=== PATIENT | female | born 1940 | race Caucasian/White ===

== ENCOUNTER 2020-03-13 08:35 | Outpatient (REF) | payer MEDICARE, SELFPAY ==
[2020-03-13 09:19] LABS: MANUAL DIFF FLAG NO
[2020-03-13 09:27] LABS: Basophils Percent Auto 0.6 % (0-2); Eosinophils Absolute Auto 0.1 X10*3/uL (0.0-0.4); Eosinophils Percent Auto 2.3 % (0-4); Hematocrit 38.2 % (37-47); Hemoglobin 12.1 g/dl (12.0-16.0); Imm Gran Abs Auto 0.02 X10*3/uL (0.00-0.03); Imm Gran Pct Auto 0.4 % (0.0-0.4); Lymphocytes Absolute Auto 1.6 X10*3/uL (1.2-4.9); Lymphocytes Percent Auto 33.2 % (20-40); Mean Corpuscular HGB Conc 31.7 g/dl (31.0-35.0); Mean Corpuscular Volume 94.8 fL (80-98); Monocytes Absolute Auto 0.4 X10*3/uL (0.1-1.2); Monocytes Percent Auto 8.5 % (2-11); Neutrophils Absolute Auto 2.6 X10*3/uL (2.0-8.3); Platelet Count 181 X10*3/uL (160-400); Red Blood Count 4.03 X10*6/uL (4.20-5.50); Red Cell Distribution Width 13.4 % (11.0-16.0); White Blood Count 4.7 X10*3/uL (4.8-10.8)
[2020-03-13 09:48] LABS: Estimated Average Glucose 137 mg/dL; Hemoglobin A1c % 6.4 %
[2020-03-13 09:54] LABS: Alanine Aminotransferase 25 U/L (0-31); Albumin Level 4.3 g/dL (3.5-5.0); Alkaline Phosphatase 67 U/L (39-117); Anion Gap 13 (12-20); Aspartate Amino Transferase 26 U/L (5-31); Bilirubin Total 0.8 mg/dL (0.0-1.0); Blood Urea Nitrogen 54 mg/dL (9-16); Calcium 8.9 mg/dL (8.4-10.2); Carbon Dioxide 25 mmol/L (22-29); Chloride 109 mmol/L (96-108); Cholesterol 175 mg/dL; Estimated Glomerular Filt Rate 49; Glucose Random 145 mg/dL (60-115); Potassium 5.4 mmol/L (3.3-5.1); Sodium 142 mmol/L (135-145); Total Protein 6.7 g/dL (6.5-8.0)
[2020-03-13 10:16] LABS: Vitamin D 25-OH Total 29.3 ng/mL (>30)
[2020-03-13 10:26] LABS: Creatinine Urine 86.56 mg/dL; Microalbum/Creatinine Ratio Ur 137.4 ug/mg cr
== END 2020-03-13 08:36 | disposition home or self-care (01) ==
LOC: HO.LAB 08:35
PROVIDERS: PCP Internal Medicine; Visit Provider Internal Medicine
DX: E78.00 Pure hypercholesterolemia, unspecified (principal); E55.9 Vitamin D deficiency, unspecified; E11.22 Type 2 diabetes mellitus with diabetic chronic kidney disease; I12.9 Hypertensive chronic kidney disease with stage 1 through stage 4 chronic kidney disease, or unspecified chronic kidney disease; N18.9 Chronic kidney disease, unspecified
CPT/HCPCS: 36415; 80053; 82043; 82306; 82465; 83036; 85025

== ENCOUNTER → 2020-04-16 14:50 | Outpatient (REF) | payer MEDICARE, SELFPAY ==
--- NOTE | 2020-04-16 15:00 | CA_ITS ---
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 The visually estimated ejection fraction is between 65-70%. - There is mild calcification of the aortic valve. - There is mild tricuspid valve regurgitation. Findings Left Ventricle Normal left ventricular cavity size. There is normal left ventricular wall thickness. The left ventricular systolic function is normal. The visually estimated ejection fraction is between 65-70%. There is no evidence of regional wall motion abnormalities. E/E prime ratio is between 8 and 15 consistent with indeterminate filling pressures. Evidence suggests grade I (mild) diastolic dysfunction. Right Ventricle Normal right ventricular cavity size and systolic function. Atria Both atria are normal in size. Aortic Valve There is a normal trileaflet aortic valve. There is mild calcification of the aortic valve. There is no aortic valve stenosis. There is no aortic valve regurgitation. Mitral Valve The mitral valve appears normal. There is trace mitral valve regurgitation. There is no mitral valve stenosis. Pulmonic Valve The pulmonic valve was not well visualized. There is trace pulmonic valve regurgitation. Tricuspid Valve Normal tricuspid valve structure. There is mild tricuspid valve regurgitation. The pulmonary artery systolic pressure is normal. Great Vessels The aortic annulus, sinuses of valsalva, asc aorta, and aortic arch are normal in size. Venous The inferior vena cava is normal in size and collapses greater than 50% with inspiration. Pericardium/Pleural There is no evidence of pericardial effusion. Prior Study Comparison No significant change compared to prior study dated: 10/31/2014. Measurements M-Mode Liner Measurements Normals - Women/Men AOV Cusps: 1.30 1.5-2.6 cm/m2 2D Linear Measurements IVSd: 0.73 0.6-0.9/0.6-1.0 cm LVIDd: 5.39 3.9-5.3/4.2-5.9 cm LVIDd Index: 3.39 2.4-3.2/2.2-3.1 cm/m2 LVIDs: 2.92 2.0-3.6 cm LVPWd: 0.82 0.7-1.1 cm Ao Root: 2.50 2.1-3.5 cm LA Diam: 3.90 2.7-3.8/3.0-4.0 cm LAIDs Index: 2.45 1.5-2.3 cm/m2 LV Mass: 184.17 67-162/88-224 g LV Mass Index: 115.83 43-95/49-115 g/m2 LVOT Diam: 1.70 3.0+(-)1.3 cm 2D Systolic Function EF 4C: 70.00 >55% EF 2C: 73.10 >55% EF BiP: 70.70 >55% Mitral Valve MV Pk E: 0.77 MV PK A: 1.33 MV Decel Time: 426.00 E/A: 0.60 E'Lateral: 8.38 E'Medial: 7.40 E/E' Med: 10.40 E/E' Lat: 9.20 PHT: 125.00 MVA PHT: 1.76 Decel Walker: 1.81 Aortic Valve AoV Pk Manny: 2.01 AoV Pk Grad: 16.00 LVOT LVOT Pk Manny: 1.17 LVOT Mn Manny: 0.88 LVOT VTI: 0.27 LVOT Pk Grad: 5.00 LVOT Mn Grad: 3.00 LVOT Diam: 1.70 LVOT Area: 2.27 Diastolic Function MV Pk E: 0.77 MV Pk A: 1.33 E/A: 0.60 E'Medial: 7.40 E/E' Med: 10.40 E' Laterial: 8.38 E/E' Lat: 9.20 Tricuspid Valve TR Pk Manny: 2.66 TR Pk Grad: 28.00 RA Press: 3.00 RVSP: 31.00 Great Vessels Aorta Ao Root-2D: 2.50 2.0-3.7 cm Ao Asc: 2.60 2.1-3.4 cm Ao Arch: 2.10 Pulmonary Valve PV Pk Manny: 1.17 Peak PV Grad: 5.00 Updated in Other Vendor System with Status of Final Dario Herrera MD electronically signed on 04/17/2020 3:38:51 PM with status of Final
== END ==
LOC: HO.CARD 14:50
PROVIDERS: Visit Provider Internal Medicine
DX: I34.0 Nonrheumatic mitral (valve) insufficiency (principal)
CPT/HCPCS: 93306

== ENCOUNTER 2021-02-06 08:36 | Outpatient (REF) | payer MEDICARE, SELFPAY | END 2021-02-06 08:37 | disposition home or self-care (01) | LOC: HO.WFDLDS 08:36 | PROVIDERS: PCP Internal Medicine; Visit Provider Internal Medicine | DX: Z20.822 Contact with and (suspected) exposure to COVID-19 (principal) | CPT/HCPCS: C9803; U0003; U0005 ==

== ENCOUNTER 2022-01-03 08:44 | Outpatient (REF) | payer MEDICARE, SELFPAY ==
[2022-01-03 08:55] LABS: MANUAL DIFF FLAG NO
[2022-01-03 09:56] LABS: Basophils Percent Auto 0.8 % (0-2); Eosinophils Absolute Auto 0.1 X10*3/uL (0.0-0.4); Eosinophils Percent Auto 2.1 % (0-4); Hematocrit 39.8 % (37.0-47.0); Hemoglobin 12.8 g/dl (12.0-16.0); Imm Gran Abs Auto 0.03 X10*3/uL (0.00-0.03); Imm Gran Pct Auto 0.6 % (0.0-0.4); Lymphocytes Absolute Auto 1.8 X10*3/uL (1.2-4.9); Lymphocytes Percent Auto 34.4 % (20-40); Mean Corpuscular HGB Conc 32.2 g/dl (31.0-35.0); Mean Corpuscular Hemoglobin 30.2 pg (27.0-33.0); Mean Corpuscular Volume 93.9 fL (80.0-98.0); Mean Platelet Volume 10.4 fL (9.4-12.3); Monocytes Absolute Auto 0.4 X10*3/uL (0.1-1.2); Monocytes Percent Auto 8.1 % (2-11); Neutrophils Absolute Auto 2.9 x10*3/uL (2.0-8.3); Platelet Count 164 X10*3/uL (160-400); Red Blood Count 4.24 X10*6/uL (4.20-5.50); Red Cell Distribution Width 13.7 % (11.0-16.0); White Blood Count 5.3 X10*3/uL (4.8-10.8)
[2022-01-03 10:04] LABS: Estimated Average Glucose 157 mg/dL; Hemoglobin A1c % 7.1 %
[2022-01-03 10:18] LABS: Alanine Aminotransferase 21 U/L (0-31); Albumin Level 4.2 g/dL (3.5-5.0); Alkaline Phosphatase 70 U/L (39-117); Anion Gap 14 (12-20); Aspartate Amino Transferase 18 U/L (5-31); Bilirubin Total 0.6 mg/dL (0.0-1.0); Blood Urea Nitrogen 63 mg/dL (9-16); Calcium 9.3 mg/dL (8.4-10.2); Carbon Dioxide 21 mmol/L (22-29); Chloride 108 mmol/L (96-108); Cholesterol 194 mg/dL; Estimated Glomerular Filt Rate 48; Glucose Fasting 176 mg/dL (60-99); HDL Cholesterol 37 mg/dL; LDL Cholesterol Calculated 114 mg/dl; Sodium 138 mmol/L (135-145); Total Protein 6.8 g/dL (6.5-8.0); Triglycerides 219 mg/dL
[2022-01-03 11:23] LABS: Microalbum/Creatinine Ratio Ur 125.8 ug/mg cr
== END 2022-01-03 08:45 | disposition home or self-care (01) ==
LOC: HO.LAB 08:44
PROVIDERS: PCP Internal Medicine; Visit Provider Internal Medicine
DX: Z00.00 Encounter for general adult medical examination without abnormal findings (principal); E11.9 Type 2 diabetes mellitus without complications
CPT/HCPCS: 36415; 80053; 80061; 82043; 83036; 85025

== ENCOUNTER 2022-06-01 08:48 | Outpatient (REF) | payer OTHER, SELFPAY ==
[2022-06-01 10:11] LABS: Estimated Average Glucose 163 mg/dL; Hemoglobin A1c % 7.3 %
[2022-06-01 10:50] LABS: Creatinine Urine 72.51 mg/dL
[2022-06-01 10:58] LABS: Alanine Aminotransferase 20 U/L (0-31); Albumin Level 4.6 g/dL (3.5-5.0); Alkaline Phosphatase 63 U/L (39-117); Anion Gap 15 (12-20); Aspartate Amino Transferase 23 U/L (5-31); Bilirubin Total 0.9 mg/dL (0.0-1.0); Blood Urea Nitrogen 53 mg/dL (9-16); Calcium 9.3 mg/dL (8.4-10.2); Carbon Dioxide 26 mmol/L (22-29); Chloride 107 mmol/L (96-108); Estimated Glomerular Filt Rate 38; Glucose Random 139 mg/dL (60-115); Sodium 143 mmol/L (135-145)
[2022-06-01 11:04] LABS: Vitamin D 25-OH Total 36.6 ng/mL (>30)
== END 2022-06-01 08:49 | disposition home or self-care (01) ==
LOC: HO.LAB 08:48
PROVIDERS: PCP Internal Medicine; Visit Provider Internal Medicine
DX: I12.9 Hypertensive chronic kidney disease with stage 1 through stage 4 chronic kidney disease, or unspecified chronic kidney disease (principal); E11.22 Type 2 diabetes mellitus with diabetic chronic kidney disease; N18.9 Chronic kidney disease, unspecified; E55.9 Vitamin D deficiency, unspecified
CPT/HCPCS: 36415; 80053; 82043; 82306; 83036

== ENCOUNTER 2023-10-07 10:16 | Outpatient (REF) | payer OTHER, SELFPAY ==
[2023-10-07 10:37] LABS: MANUAL DIFF FLAG NO
[2023-10-07 10:45] LABS: Basophils Absolute Auto 0.1 X10*3/uL (0.0-0.2); Basophils Percent Auto 0.8 % (0-2); Eosinophils Absolute Auto 0.1 X10*3/uL (0.0-0.4); Hematocrit 39.9 % (37.0-47.0); Hemoglobin 12.6 g/dl (12.0-16.0); Imm Gran Abs Auto 0.02 X10*3/uL (0.00-0.03); Imm Gran Pct Auto 0.3 % (0.0-0.4); Lymphocytes Absolute Auto 1.4 X10*3/uL (1.2-4.9); Lymphocytes Percent Auto 23.4 % (20-40); Mean Corpuscular HGB Conc 31.6 g/dl (31.0-35.0); Mean Platelet Volume 9.5 fL (9.4-12.3); Monocytes Absolute Auto 0.5 X10*3/uL (0.1-1.2); Monocytes Percent Auto 7.5 % (2-11); Platelet Count 175 X10*3/uL (160-400); Red Cell Distribution Width 13.8 % (11.0-16.0)
[2023-10-07 10:55] LABS: Estimated Average Glucose 148 mg/dL; Hemoglobin A1c % 6.8 % (<6.0)
[2023-10-07 11:45] LABS: Alanine Aminotransferase 19 U/L (0-31); Albumin Level 4.3 g/dL (3.5-5.0); Alkaline Phosphatase 72 U/L (39-117); Anion Gap 14 (12-20); Aspartate Amino Transferase 19 U/L (5-31); Bilirubin Total 0.5 mg/dL (0.0-1.0); Blood Urea Nitrogen 60 mg/dL (9-16); Calcium 9.5 mg/dL (8.4-10.2); Carbon Dioxide 24 mmol/L (22-29); Chloride 109 mmol/L (96-108); Cholesterol 172 mg/dL (<200); Estimated Glomerular Filt Rate 38; Glucose Fasting 183 mg/dL (60-99); HDL Cholesterol 39 mg/dL (>40); LDL Cholesterol Calculated 99 mg/dL (<100); Potassium 5.1 mmol/L (3.3-5.1); Sodium 142 mmol/L (135-145); Total Protein 7.2 g/dL (6.5-8.0); Triglycerides 174 mg/dL (<150)
[2023-10-07 12:03] LABS: Vitamin D 25-OH Total 45.3 ng/mL (>30)
[2023-10-07 13:48] LABS: Creatinine Urine 80.63 mg/dL; Microalbum/Creatinine Ratio Ur 89.2 ug/mg cr (<30)
[2023-10-07 14:53] LABS: Appearance Urine Clear; Color Urine Straw; Glucose Urine UA >=1000 mg/dL (Negative); Leukocyte Esterase Urine Negative (Negative); Nitrite Urine Negative (Negative); UMIC TRIGGER UA YES; Urine Blood Negative (Negative); Urine Ketones Negative (Negative); Urine Protein Negative (Neg-Trace)
[2023-10-07 14:55] LABS: Bacteria Urine Trace (None Seen); Hyaline Casts Urine 0-2 /LPF (0-2); RBC Urine 0-2 /HPF (0-2); WBC Urine 0-5 /HPF (0-5)
== END 2023-10-07 10:17 | disposition home or self-care (01) ==
LOC: HO.LAB 10:16
PROVIDERS: PCP Internal Medicine; Visit Provider Internal Medicine
DX: I12.9 Hypertensive chronic kidney disease with stage 1 through stage 4 chronic kidney disease, or unspecified chronic kidney disease (principal); E11.22 Type 2 diabetes mellitus with diabetic chronic kidney disease; N18.9 Chronic kidney disease, unspecified; E78.00 Pure hypercholesterolemia, unspecified; M81.0 Age-related osteoporosis without current pathological fracture
CPT/HCPCS: 36415; 80053; 80061; 81001; 81003; 82043; 82306; 82570; 83036; 85025

== ENCOUNTER 2024-10-20 10:46 | Outpatient (AMB) | payer OTHER, SELFPAY ==
--- NOTE | 2024-10-20 10:43 | MHC.PC.OV ---
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 Pantry Chef Required: No Accompanied by: Self / Same As Patient Allergies No Known Allergies (No Known Allergies*) Allergy (Verified 10/20/24 10:44) Tobacco use date assessed: 10/20/24 Fall risk assessment: 1 Fall in past year Last assessed Fall Risk: 10/20/24 Dental Screening Dental Screen Date: 10/20/24 Did you have a dental visit in the last 12 months?: No Did you have a dental problem in the last 6 months where you did not have access to dental care?: No Was dental information given to patient?: Yes HPI HPI Comments History of Present Illness Details The patient is an 84-year-old female presenting with hypertension, diabetes, hyperlipidemia, and vertigo. The patient's hypertension is managed with Diltiazem 240 mg daily and Lisinopril 5 mg daily. She also has a history of Type 2 Diabetes Mellitus, for which she takes Glipizide 10 mg twice daily and Januvia 100 mg once daily. Hyperlipidemia is managed with Atorvastatin 40 mg daily. In addition, the patient experiences vertigo, which is controlled with an [id number] medication, Dramamine. She reports no current concerns or acute changes in her chronic conditions. The patient denies any nausea, vomiting, chest pain, or shortness of breath but mentions occasional pain in the chest area. Relevant surgeries include a past tonsillectomy, hysterectomy, and sinus polyp removal. There is no history of allergies. During the visit, she reports experiencing some leg swelling and was advised to elevate her legs while sitting to help reduce the swelling. Medical History: - Essential Hypertension - Type 2 Diabetes Mellitus - Hyperlipidemia - Vertigo Surgical History: - Tonsillectomy - Hysterectomy - Sinus polyp removal Medications: - Diltiazem 240 mg once daily for hypertension - Lisinopril 5 mg once daily for hypertension - Glipizide 10 mg twice daily for diabetes - Januvia 100 mg once daily for diabetes - Atorvastatin 40 mg once daily for hyperlipidemia - Dramamine as needed for vertigo Family History: - Stomach cancer in mother - Heart disease in father - Diabetes in siblings and extended family Social: - Lives in subsidized housing in [place] - Resides in own apartment with neighbors nearby - Visits a friend with memory loss in a [facility] when transportation is available - Poor eyesight, 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 1. Little interest or pleasure in doing things: not at all 2. Feeling down, depressed, or hopeless: not at all 3. Trouble falling or staying asleep, or sleeping too much: not at all 4. Feeling tired or having little energy: not at all 5. Poor appetite or overeating: not at all 6. Feeling bad about yourself - or that you are a failure or have let yourself or your family down: not at all 7. Trouble concentrating on things, such as reading the newspaper or watching television: not at all 8. Moving or speaking so slowly that other people could have noticed. Or the opposite - being so fidgety or restless that you have been moving around a lot more than usual: not at all 9. Thoughts that you would be better off or of hurting yourself in some way: not at all Total score: 0 Depression Screening Interpretation: Negative Depression Screening Done: Yes [id number] - PHQ-9 Billing: Yes Source: Developed by Drs. Hay Rivas, Dina Escobar, Juanito Duenas and colleagues, with an educational madeleine from [employer]. Thrive Questionnaire Date Thrive assessed: 10/20/24 I am a: Patient What is your living situation today?: I have a steady place to live Within the past 12 months, did the food you bought not last and you didn't have the money to get more?: Never true Within the past 12 months, did you worry whether your food would run out before you got money to buy more?: Never true Do you have trouble paying for medicines?: No Do you have trouble getting transportation to medical appointments?: No Do you have trouble paying your heating and electricity bill?: No Do you have trouble taking care of your child, family member or friend?: No Do you have trouble with day-to-day activities such as bathing, preparing meals, shopping, managing finances, etc.?: No Are you currently unemployed and looking for a job?: No Are you interested in more education?: No THRIVE Score: 0 AUDIT C Alcohol Use Questionnaire (AUDIT-C) 1. How often do you have a drink containing alcohol?: Never 3. How often do you have six or more drinks on one occasion?: Never Total Score: 0 Score Reviewed/Action Taken: Yes KESHIA-7 AMB Questionnaire KESHIA-7 Date KESHIA - 7 assessed: 10/20/24 Feeling nervous, anxious, or on edge: 0 = Not at all Not being able to stop or control worryin = Not at all Worrying too much about different things: 0 = Not at all Trouble relaxin = Not at all Being so restless that it is hard to sit still: 0 = Not at all Becoming easily annoyed or irritable: 0 = Not at all Feeling afraid as if something awful might happen: 0 = Not at all Total KESHIA-7 score (0-4 normal; 5-9 mild; 10-14 moderate; 15-21 severe): 0 Source: Developed by Drs. Hay Rivas, Dina Escobar, Juanito Duenas and colleagues, with an educational madeleine from [employer]. KESHIA-7 Assessment Billing KESHIA-7 Assessment Tool: KESHIA-7 Assessment 56682 Review of Systems Const Details: - Cardiovascular: Denies chest pain or shortness of breath; reports occasional pain in chest area - Gastrointestinal: Denies nausea or vomiting - General: Denies current complaints, reports feeling well - Neurological: Reports controlled vertigo - Respiratory: Denies shortness of breath All systems reviewed & are unremarkable except as reviewed in HPI and above Physical exam (Primary Care) Vital Signs: Last Vital Signs Temp 97.8 F 10/20/24 10:52 Pulse 65 10/20/24 10:52 Resp 17 10/20/24 10:52 BP 124/62 10/20/24 10:52 Pulse Ox 97 10/20/24 10:52 Oxygen Delivery Method Room Air 10/20/24 10:52 Tobacco/Smoking Status: Tobacco use Status Tobacco use date assessed 10/20/24 10/20/24 10:45 Patient Tobacco Use Status Never used Tobacco 10/20/24 10:54 e-Cigarette/Vaping Use Never Used 10/20/24 10:54 Depression Screening Interpretation: Negative Const Other: General: Alert and oriented, Well nourished, No acute distress. Eye: Pupils are equal, round and reactive to light, Intact accommodation, Extraocular movements are intact, Normal conjunctiva, Vision unchanged. HENT: Normocephalic, Atraumatic, Tympanic membranes are clear, Normal hearing, Oral mucosa is moist, No pharyngeal erythema, Ear canals patent. Respiratory: Lungs CTA bilaterally, No wheeze, Respirations are non-labored. Cardiovascular: Regular rate, Regular rhythm, S1 auscultated, S2 auscultated, No murmur, Good pulses equal in all extremities, Normal peripheral perfusion, No edema. Gastrointestinal: Soft, Non-tender, Non-distended, Normal bowel sounds, No organomegaly. Musculoskeletal: Normal range of motion, Normal strength, No tenderness, No deformity, Normal gait. 1+ Swelling in B/l LE Integumentary: Warm, Dry, [place], Intact. Neurologic: Alert, Oriented, Normal sensory, Normal motor function, No focal defects, Cranial Nerves II-XII are grossly intact, Normal deep tendon reflexes. Psychiatric: Cooperative, Appropriate mood & affect, Normal judgment. Coding Level of Care Code New Pt Level 4 (41784) Complex EM visit Add On G2211 Diagnoses Hypertension, unspecified type I10 Hypertension type: unspecified Hyperlipidemia, unspecified hyperlipidemia type E78.5 Hyperlipidemia type: unspecified Type 2 diabetes mellitus without complication, without long-term current use of insulin E11.9 Diabetes mellitus type: type 2 Diabetes mellitus residential insulin use: without manager intermediate use Diabetes mellitus complication status: without complication Vertigo R42 Additional Codes KESHIA-7 Assessment Billing - KESHIA-7 Assessment Tool: KESHIA-7 Assessment 96235 ([id number]) PHQ-9 - 91552 - PHQ-9 Billing: Yes ([id number]) Assessment & Plan Assessment & Plan (1) Hypertension: Comment: - Monitor blood pressure control with current medications, Diltiazem and Lisinopril. - Evaluate blood work to assess renal function and electrolytes due to Lisinopril. - Encourage lifestyle measures including sodium reduction and stress management. Code(s): I10 - Essential (primary) hypertension Category: Medical Qualifiers: Hypertension type: unspecified Qualified Code(s): I10 - Essential (primary) hypertension (2) Hyperlipidemia: Comment: - Continue Atorvastatin to manage cholesterol levels. - Perform lipid panel as part of blood work for ongoing management. Code(s): E78.5 - Hyperlipidemia, unspecified Category: Medical Qualifiers: Hyperlipidemia type: unspecified Qualified Code(s): E78.5 - Hyperlipidemia, unspecified (3) Diabetes: Comment: - Continue Glipizide and Januvia to manage blood sugar levels. - Order new blood work to assess glycemic control and renal function. - Engage in dietary counseling and physical activity to optimize blood sugar levels. Code(s): E11.9 - Type 2 diabetes mellitus without complications Category: Medical Qualifiers: Diabetes mellitus type: type 2 Diabetes mellitus manager intermediate insulin use: without manager intermediate use Diabetes mellitus complication status: without complication Qualified Code(s): E11.9 - Type 2 diabetes mellitus without complications (4) Vertigo: Comment: - Continue use of Dramamine as needed. - Monitor for changes in symptoms or increase in frequency. Code(s): R42 - Dizziness and giddiness Category: Medical Plan: Health Maintenance: - Blood work to include a comprehensive metabolic panel, lipid profile, and HbA1c for diabetes and hypertension management. - Emphasis on dietary and lifestyle modification for blood pressure and glucose management. Plan During today's visit, I discussed with the patient the importance of controlling her chronic conditions, including hypertension, diabetes, and hyperlipidemia. Blood work has been ordered to evaluate her current status and guide further treatment. I emphasized the need for adherence to her medication regimen and lifestyle modifications, including dietary adjustments and physical activity, to manage the aforementioned conditions effectively. In addition, the importance of elevating her legs to manage the swelling and mitigate symptoms was discussed. The patient expressed understanding and willingness to follow the instructions provided. Orders: Orders Comprehensive Met. Panel Today E11.9 - Type 2 diabetes mellitus without complications, E78.5 - Hyperlipidemia, unspecified, I10 - Essential (primary) hypertension Complete Blood Count Auto Diff Today E11.9 - Type 2 diabetes mellitus without complications, E78.5 - Hyperlipidemia, unspecified, I10 - Essential (primary) hypertension Hemoglobin A1c Today E11.9 - Type 2 diabetes mellitus without complications, E78.5 - Hyperlipidemia, unspecified, I10 - Essential (primary) hypertension Lipid Panel Today E11.9 - Type 2 diabetes mellitus without complications, E78.5 - Hyperlipidemia, unspecified, I10 - Essential (primary) hypertension TSH reflex Free T4 Today E11.9 - Type 2 diabetes mellitus without complications, E78.5 - Hyperlipidemia, unspecified, I10 - Essential (primary) hypertension Vitamin D 25-OH Total Today E11.9 - Type 2 diabetes mellitus without complications, E78.5 - Hyperlipidemia, unspecified, I10 - Essential (primary) hypertension Patient Instructions: - Continue current medications as prescribed. - Elevate legs while sitting to reduce swelling. - Schedule blood work as instructed. - Follow a balanced diet and engage in regular physical activity. - Return for a follow-up visit in six months or sooner if symptoms worsen.
[2024-10-20 10:52] VITALS: BP 124/62; PULSE 65; RESP 17; TEMP 36.6; O2SAT 97
--- OUTSIDE RECORDS SUMMARY | 2024-10-20 12:20 | XMS_ITS | Patient Health Record ---
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 Role Phone Nichole (RETIRED) Michael LOUIE Primary Care Provide r Unavailable MorrisHay Unavailable [phone] Reason For Referral No Information Medications Medication SIG (Take, Route, Frequency, Duration) Notes Start Date End Date Status Lisinopril Active hydroCHLOROthiazide 25 MG Orally Active Cartia XT 240 MG 1 capsule Orally Onc e a day Active glyburide 5MG Active Atorvastatin Calcium 40 MG 1 tablet Oral ly Once a day Active Colyte w Flavor Packs 240 GM as directed Orally as directed for 1 day(s) 02/20/2015 Active Januvia 100 MG Orally Activ e Problems Problem Type SNOMED Code ICD Code Onset Dates Problem Status W/U Status Risk Notes Problem [id number] Encounter for screening for malignant neoplasm of colon (Z12.11) Active confirmed Problem Screening for malignant neoplasm of rectum (271108046) Encounter for screening for malignant neoplasm of rectum (Z12.12) Active confirmed Problem [id number] Preprocedural examination (Z01.818) Active confirmed Problem [id number] Hx of adenomatou s colonic polyps (Z86.010) Active confirmed Plan Of Treatment Future Test Test Name Order Date COLONOSCOPY 02/20/2015 Insurance Providers Payer Name Payer Address Payer Phone Subscriber Number Group Number Insured Name Patient Relationship to Insured Coverage Start Date Coverage End Date [facility] [address] [address] [place] [address] [phone] [id number] ELIZABET HO Self - patient is the insured Medical (General) History Medical History History ICD Code Colonoscopy, 2008--2 tubular adenomas re moved NIDDM Hypertension Hyperlipidemia Denies VA,CVA,Lung disease,renal disease Heart murmur--has had an ECHOcardiogram in 2014 Surgical History Surgery Date(Month/Year) Tonsillectomy Sinus polyps JANNET
== END 2024-10-20 11:04 | disposition home or self-care (01) ==
LOC: HO.HMCHD 10:46
PROVIDERS: PCP Student in an Organized Health Care Education/Training Program; Visit Provider Student in an Organized Health Care Education/Training Program
DX: I10 Essential (primary) hypertension (principal); E78.5 Hyperlipidemia, unspecified; E11.69 Type 2 diabetes mellitus with other specified complication; R42 Dizziness and giddiness

== ENCOUNTER → 2024-10-20 10:46 | Outpatient (BNVA) | payer OTHER, SELFPAY | PROVIDERS: PCP Internal Medicine; Visit Provider Student in an Organized Health Care Education/Training Program | DX: I10 Essential (primary) hypertension (principal); E78.5 Hyperlipidemia, unspecified; E11.9 Type 2 diabetes mellitus without complications; R42 Dizziness and giddiness; Z79.84 Long term (current) use of oral hypoglycemic drugs; Z79.899 Other long term (current) drug therapy; Z13.31 Encounter for screening for depression; Z13.39 Encounter for screening examination for other mental health and behavioral disorders | CPT/HCPCS: 96127; 99202 ==